=== PATIENT | male | born 1970 | race Caucasian/White ===

== ENCOUNTER 2018-07-01 10:53 | Emergency (ER) | payer OTHER ==
--- NOTE | 2018-07-01 11:01 | UC ---
Throat Pain/Nasal [place] HPI - HPI Summary HPI Summary: 48 yo male presents with sinus pain/pressure/congestion for the last 1.5 weeks. He has been taking sudafed, dayquill, nyquill, and tylenol with good relief at first, but no longer. He felt feverish the first 2-3 days of his symptoms, but did not take his temperature and has not felt feverish since. Denies chills, body aches, sore throat, cough. - History of Current Complaint Stated Complaint: SINUS ISSUE Time Seen by Provider: 07/01/18 11:01 Hx Obtained From: Patient Onset/Duration: Gradual Onset Severity: Mild Pain Intensity: 2 Pain Scale Used: 0-10 Numeric - Allergies/Home Medications Allergies/Adverse Reactions: Allergies Allergy/AdvReac Type Severity Reaction Status Date / Time No Known Allergies Allergy Verified 07/01/18 11:16 Home Medications: Home Medications Guaifenesin/Dextromethorphan [Cough-Chest Congestion Dm Liq] 1 dose PO ONCE PRN 07/01/18 [History Confirmed 07/01/18] guaiFENesin [Mucinex] 1,200 mg PO ONCE PRN 07/01/18 [History Confirmed 07/01/18] PMH/Surg Hx/FS Hx/Imm Hx Cardiovascular History: Hypertension GI/ History: Gastroesophageal Reflux - Surgical History Surgical History: None - Family History Known Family History: Positive: None - Social History Occupation: Employed Full-time Lives: With Family Alcohol Use: Daily Alcohol Amount: 1 beer Substance Use Type: None Smoking Status (MU): Never Smoked Tobacco Review of Systems All Other Systems Reviewed And Are Negative: Yes Constitutional: Positive: Negative Skin: Positive: Negative Eyes: Positive: Negative ENT: Positive: Nasal Discharge, Sinus Congestion, Sinus Pain/Tenderness Respiratory: Positive: Negative Cardiovascular: Positive: Negative Gastrointestinal: Positive: Negative Neurovascular: Positive: Negative Neurological: Positive: Negative Psychological: Positive: Negative Physical Exam - Summary Physical Exam Summary: GENERAL: NAD. WDWN. No pain distress. SKIN: No rashes, sores, lesions, or open wounds. HEENT: Head: AT/NC Eyes: EOM intact. Conjunctiva clear without inflammation or discharge. Ears: Hearing grossly normal. TMs intact, no bulging, erythema, or edema. Nose: Nasal mucosa mildly swollen and erythematous with yellow/ clear discharge. TTP maxillary and frontal sinus. Positive post nasal drip Throat: Posterior oropharynx without exudates, erythema, or tonsillar enlargement. Uvula midline. NECK: Supple. Nontender. No lymphadenopathy. CHEST: CTAB. No r/r/w. No accessory muscle use. Breathing comfortably and in no distress. CV: RRR. Without m/r/g. Pulses intact. NEURO: Alert. PSYCH: Age appropriate behavior. Triage Information Reviewed: Yes Vital Signs: Vital Signs: Temp Pulse Resp BP Pulse Ox 97.7 F 88 18 149/95 98 07/01/18 11:12 07/01/18 11:12 07/01/18 11:12 07/01/18 11:12 07/01/18 11:12 Vital Signs Reviewed: Yes Throat Pain/Nasal Course/Dx - Course Course Of Treatment: Sinusitis - Differential Dx/Diagnosis Provider Diagnosis: Sinusitis Discharge - Sign-Out/Discharge Documenting (check all that apply): Patient Departure All imaging exams completed and their final reports reviewed: No Studies - Discharge Plan Condition: Stable Disposition: HOME Prescriptions: Amoxicillin PO (*) [Amoxicillin 875 MG (*)] 875 mg PO BID #14 tab Patient Education Materials: Sinusitis (ED) Referrals: Teddy Burch MD [Primary Care Provider] - Additional Instructions: If you develop a fever, shortness of breath, chest pain, new or worsening symptoms - please call your PCP or go to the ED. - Billing Disposition and Condition Condition: STABLE Disposition: Home
--- OUTSIDE RECORDS SUMMARY | 2018-07-01 11:01 | XMS REPORT | Continuity of Care Document ---
:1970 External Reference #:[id number] Author Name Luana Tatum Care Team Providers Name Role Phone Teddy Burch III, MD Primary Care Physician Unavailable Payers Date Identification Numbers Payment Provider Subscriber Policy Number: [id number] [employer] Mariluz Hurley PayID: [id number] [address] [place] [address] Advance Directives Description No Information Available Problems Date Description Provider Status Onset: 04/05/2015 Essential hypertension Teddy Burch M.D. Active Onset: 04/05/2015 Pure hypercholesterolemia Teddy Burch M.D. Active Onset: 06/26/2007 Gastroesophageal reflux disease Peter Watson MD Active Note: first got omeprazole OTC then Dr Burch started Rx and he takes M, W, Fri ; Hg 09/02/14 - 15.8 Onset: 09/02/2014 Liver function tests abnormal Peter Watson MD Active Note: this date ALT 66, AST 22 bili 0.5 - only one set of LFTs [facility] as of 06/26/18 with no viral studies; Family History Date Family Member(s) Observation Comments Father Hypertension Father Diabetes Father Prostate Cancer Father Skin Cancer basal, squamous cell cancers Mother Alive And Well Paternal Grandfather Prostate Cancer Social History Type Date Description Comments Sex Unknown Marital Status 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 other day Chlorthalidone 04/05/ Active Tablets 25mg 45tabs take 05/14 I10 Teddy Banks 2014 tablet Kiersten, by mouth M.D. once daily Zantac 150 / Active Tablets 150mg 1 by Unknown Maximum Strength 0000 mouth once ad ay as needed Famotidine 02/26/ Hx Tablets 40mg 30tabs Take One K21.9 Teddy Banks 2016 - Tablet Kiersten, 04/15/ By Mouth M.D. 2018 Every Day Atenolol 04/05/ Hx Tablets 25mg 30tabs 1 by I10 Teddy Banks 2014 - mouth Kiersten, 04/30/ every M.D. 2016 day Multivitamins 04/05/ Hx Capsules 30caps 1 by Teddy Banks 2014 - mouth Kiersten, 04/14/ every M.D. 2018 day Immunizations CPT Code Status Date Vaccine Lot # [id number] Given 04/30/2016 Tdap - Tetanus/Diptheria/Acellular Pertussis [id number] Vital Signs Date Vital Result Comment 06/26/2018 10:24am Height 72 inches 6'0" Weight 223.25 lb Heart Rate 96 /min BP Systolic 134 mmHg BP Diastolic 91 mmHg Respiratory Rate 20 /min Body Temperature 96.0 F 1 O2 % BldC Oximetry 100 % BMI (Body Mass Index) 30.3 kg/m2 04/22/2018 9:02am Height 72 inches 6'0" Weight 221.50 lb Heart Rate 82 /min BP Systolic 136 mmHg BP Diastolic 92 mmHg Respiratory Rate 18 /min O2 % BldC Oximetry 99 % BMI (Body Mass Index) 30.0 kg/m2 04/15/2018 4:38pm Height 72 inches 6'0" Weight 220.00 lb Heart Rate 92 /min BP Systolic Sitting 120 mmHg BP Diastolic Sitting 88 mmHg O2 % BldC Oximetry 97 % BMI (Body Mass Index) 29.8 kg/m2 02/26/2017 1:12pm Weight 216.00 lb Heart Rate 101 /min BP Systolic Sitting 150 mmHg BP Diastolic Sitting 99 mmHg Body Temperature 97.1 F Pain Level 7 goes up to 9 or 10 at times O2 % BldC Oximetry 98 % 04/30/2016 2:22pm Height 72 inches 6'0" Weight 216.00 lb Heart Rate 89 /min BP Systolic Sitting 136 mmHg BP Diastolic Sitting 90 mmHg Body Temperature 97.6 F O2 % BldC Oximetry 98 % BMI (Body Mass Index) 29.3 kg/m2 06/02/2015 8:57am Weight 216.00 lb Heart Rate 85 /min BP Systolic Sitting 124 mmHg BP Diastolic Sitting 86 mmHg Body Temperature 96.6 F O2 % BldC Oximetry 98 % 04/05/2015 1:14pm Height 72 inches 6'0" Weight 215.00 lb Heart Rate 73 /min BP Systolic 110 mmHg 132/98 initially BP Diastolic 76 mmHg 132/98 initially Body Temperature 97.4 F O2 % BldC Oximetry 98 % BMI (Body Mass Index) 29.2 kg/m2 Results Test Date Facility Test Result H/L Range Note Laboratory test 05/21/2018 [facility] Clotest SEE RESULT 1 , [address] [place] [address] [phone] Lipid Profile 03/13/2018 [facility] Triglycerides 157 mg/dL 3 (Trig/Chol/HDL) [place] [address] [phone] Cholesterol 242 mg/dL 4 HDL Cholesterol 45.1 mg/dL 5 LDL Cholesterol 166 mg/dL 6 Basic Metabolic Panel 03/13/2018 [facility] Sodium 140 mmol/L N 135-[address] [place] [address] [phone] Potassium 3.9 mmol/L N 3.5-5.0 Chloride 102 mmol/L N 101-111 Co2 Carbon Dioxide 30 mmol/L N 22-32 Anion Gap 8 mmol/L N 2-11 Glucose 108 mg/dL High 70-100 Blood Urea Nitrogen 18 mg/dL N 6-24 Creatinine 1.02 mg/dL N 0.67-1.17 BUN/Creatinine Ratio 17.6 N 8-20 Calcium 9.6 mg/dL N 8.6-10.3 Egfr Non- 78.6 >60 Egfr 95.1 >60 7 Lipid Profile 04/18/2016 [facility] Triglycerides 198 mg/dL N 8 (Trig/Chol/HDL) [address] [place] [address] [phone] Cholesterol 193 mg/dL N 9 HDL Cholesterol 33.0 mg/dL N 10 LDL Cholesterol 120 mg/dL N 11 Basic Metabolic Panel 05/18/2015 [facility] Sodium 138 mmol/L N 133-145 [address] [place] [address] [phone] Potassium 4.0 mmol/L N 3.5-5.0 Chloride 103 mmol/L N 101-111 Co2 Carbon Dioxide 28 mmol/L N 22-32 Anion Gap 7 mmol/L N 2-11 Glucose 106 mg/dL High 70-100 Blood Urea Nitrogen 18 mg/dL N 6-24 Creatinine 1.12 mg/dL N 0.67-1.17 BUN/Creatinine Ratio 16.1 N 8-20 Calcium 9.8 mg/dL N 8.6-10.3 Egfr Non- 71.6 N >60 Egfr 92.0 N >60 12 Lipid Profile 03/22/2015 [facility] Triglycerides 194 mg/dL N 13 (Trig/Chol/HDL) [address] [place] [address] [phone] Cholesterol 231 mg/dL N 14 HDL Cholesterol 38.0 mg/dL N 15 LDL Cholesterol 154 mg/dL N 16 Laboratory test 03/22/2015 [facility] Glucose 103 mg/dL High 70-100 [address] [place] [address] [phone] 1 [id number] 2 SEE RESULT BELOW Name: MARILUZ HURLEY : [address]: Peter Watson MD Acct: [id number] Unit: [id number] AGE: 47 Location: [facility] Re05/21/18 SEX: M Status: DEP REF SPEC: [id number] TYRON: 05/21/18 [facility] DR: Peter Watson MD REQ: [id number] RECD: 05/21/18 STATUS: THUAN BARROW DR: Teddy Burch III, MD _ SOURCE: GAS ANTRUM SPDESC: ORDERED: Clotest COMMENTS: [id number] Procedure Result Reported Site Clotest Final 05/22/18- 0750 ML Clotest Negative * ML - Main Lab . END OF REPORT DEPARTMENT OF PATHOLOGY, [address] [place] [address] Los Son M.D. Director [facility] # [id number] 3 Desirable: <150 Borderline High: 150-199 High: 200-499 Very High: >500 4 Desirable: <200 Borderline High: 200-239 High: >239 5 Low: <40 Desirable: 40-60 High: >60 6 Desirable: <100 Near Optimal: 100-129 Borderline High: 130-159 High: 160-189 Very High: >189 7 Because ethnic data is not always readily available, this report includes an eGFR for both -Americans and non- Americans. The National Kidney Disease Education Program (NKDEP) does not endorse the use of the MDRD equation for patients that are not between the ages of 18 and 70, are , have extremes of body size, muscle mass, or nutritional status, or are non- or non-. According to the National Kidney Foundation, irrespective of diagnosis, the stage of the disease is based on the level of kidney function: Stage Description GFR(mL/min/1.73 m(2)) 1 Kidney damage with normal or decreased GFR 90 2 Kidney damage with mild decrease in GFR 60-89 3 Moderate decrease in GFR 30-59 4 Severe decrease in GFR 15-29 5 Kidney failure <15 (or dialysis) 8 Desirable <150 Borderline high 150-199 High 200-499 Very High >500 9 Desirable <200 Borderline high 200-239 High >239 10 Low <40 Desirable: 40-60 High: >60 11 Desirable: <100 mg/dL Near Optimal: 100-129 mg/dL Borderline High: 130-159 mg/dL High: 160-189 mg/dL Very High: >189 mg/dL 12 Because ethnic data is not always readily available, this report includes an eGFR for both -Americans and non- Americans. The National Kidney Disease Education Program (NKDEP) does not endorse the use of the MDRD equation for patients that are not between the ages of 18 and 70, are , have extremes of body size, muscle mass, or nutritional status, or are non- or non-. According to the National Kidney Foundation, irrespective of diagnosis, the stage of the disease is based on the level of kidney function: Stage Description GFR(mL/min/1.73 m(2)) 1 Kidney damage with normal or decreased GFR 90 2 Kidney damage with mild decrease in GFR 60-89 3 Moderate decrease in GFR 30-59 4 Severe decrease in GFR 15-29 5 Kidney failure <15 (or dialysis) 13 Desirable <150 Borderline high 150-199 High 200-499 Very High >500 14 Desirable <200 Borderline high 200-239 High >239 15 Low <40 Desirable: 40-60 High: >60 16 Desirable: <100 mg/dL Near Optimal: 100-129 mg/dL Borderline High: 130-159 mg/dL High: 160-189 mg/dL Very High: >189 mg/dL Procedures Date Code Description Status 05/21/2018 32679 Endoscopy Upper GI Biopsy Completed 04/30/2016 11133 Admin & Interp Of Health Risk Assessment w/ Patient Completed Encounters Type Date Location Provider Dx Diagnosis Office Visit 04/22/2018 [facility] Gastroenterology Diandra Smart, K21.9 Gastro- esophageal 8:45a [employer] reflux disease without esophagitis R12 Heartburn Office Visit 02/26/2017 1:00p [facility] Internal Teddy Banks M54.5 Low back pain Yang Burch M.D. [facility] K21.9 Gastro-esophageal reflux disease without esophagitis I10 Essential (primary) hypertension Office Visit 04/30/2016 2:20p [facility] Internal Teddy Banks Z00.00 Encntr for Medicine Leilani Burch M.D. general adult [facility] medical exam w/o abnormal findings I10 Essential (primary) hypertension E78.00 Pure hypercholesterolemia, unspecified Z85.828 Personal history of other malignant neoplasm of skin Z23 Encounter for immunization Office Visit 06/02/2015 9:00a [facility] Internal Teddy Banks I10 Essential Yang Burch M.D. (primary) [place] hypertension Office Visit 04/05/2015 1:20p [facility] Internal Teddy Banks Z00.00 Encntr for general Yang Burch M.D. adult medical exam [place] w/o abnormal findings I10 Essential (primary) hypertension E78.0 Pure hypercholesterolemia Z85.828 Personal history of other malignant neoplasm of skin R20.9 Unspecified disturbances of skin sensation Plan of Treatment Future Appointment(s):10/10/2018 9:20 am - Teddy Burch M.D. 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
[2018-07-01 11:17] VITALS: BP 149/95
== END 2018-07-01 11:23 | disposition home or self-care (01) ==
LOC: UCEAST 10:53
DX: J32.9 Chronic sinusitis, unspecified (principal); I10 Essential (primary) hypertension
CPT/HCPCS: 99212; G0463